=== PATIENT | female | born 1990 ===

== ENCOUNTER 2018-01-20 07:52 | Day surgery (SDC) | payer OTHER ==
[2018-01-20] MEDS ORDERED: Midazolam 2 MG/2 ML VIAL ONE ×2 (10:06→10:24)
[2018-01-20] MEDS ORDERED: Propofol 10 mg/ml Inj (20 ML) ONE ×2 (10:06→10:24)
[2018-01-20 10:55] VITALS: TEMP 97.7
[2018-01-20 11:08] VITALS: O2SAT 100
[2018-01-20 11:15] VITALS: BP 104/70; PULSE 89; RESP 14
== END 2018-01-20 11:45 | disposition home or self-care (01) ==
LOC: C.ENDO 07:52
PROVIDERS: ATTEND Internal Medicine Gastroenterology
DX: K29.70 Gastritis, unspecified, without bleeding (principal); K64.0 First degree hemorrhoids; K52.9 Noninfective gastroenteritis and colitis, unspecified
CPT/HCPCS: 43239; 45380; 84703; 88305; J2001; J2250; J2704; J7040